=== PATIENT | male | born 1960 | race African-American/Black ===

== ENCOUNTER 2019-05-22 14:33 | Emergency (ER) | payer OTHER ==
[~2019-05-22] VITALS: Ht 177.8 cm; Wt 102.1 kg
--- OUTSIDE RECORDS SUMMARY | 2019-05-22 14:36 | XMS REPORT | Clinical Summary ---
Author Author SHAW [facility]it [facility] Address Unknown Phone Unavailable Care Team Providers Care Sheet Metal Former Name Role Phone Catherine Villatoro Unavailable Allergies No Known Allergies Medications End Date Status Medication Sig Dispensed Refills Start Date Active aspirin 81 MG chewable Take 81 mg by 0 tablet mouth daily. Active carvedilol (COREG) 12.5 Take 12.5 mg 0 MG tablet by mouth 2 (two) times daily with breakfast and dinner. Active clopidogrel (PLAVIX) 75 Take 75 mg by 0 mg tablet mouth daily. Active losartan (COZAAR) 100 MG Take 100 mg 0 tablet by mouth daily. Active rosuvastatin (CRESTOR) 10 Take 10 mg by 0 MG tablet mouth daily. Active multivit with min-folic Take 1 tablet 0 acid 0.4 mg by mouth TabIndications: Pre-op daily. exam Active famotidine (PEPCID) 10 MG Take 1 tablet 60 tablet 0 tablet (10 mg total) 9 by mouth every 12 (twelve) hours. Active furosemide (LASIX) 40 MG Take 40 mg by 11 tablet mouth daily. 9 Active tadalafil (CIALIS) 10 MG TK 1 T PO Q 5 tablet 72 H PRN UTD 9 01/02/2019 Discontinued coenzyme Q10 10 mg Take 100 mg 0 capsuleIndications: by mouth Pre-op exam every other day. 01/02/2019 Discontinued colchicine (COLCRYS) 0.6 Take 0.6 mg 0 mg tabletIndications: by mouth Pre-op exam daily as needed. 01/02/2019 Discontinued VIAGRA 100 mg TK 1 T PO PRN 0 tabletIndications: Pre-op 9 exam 01/12/2019 acetaminophen-codeine Take 1 tablet 30 tablet 0 (TYLENOL #3) 300-30 mg by mouth 9 per tablet every 6 (six) hours as needed for Pain for up to 10 days. 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 PAD (peripheral artery disease) 12/16/2018 Peripheral arterial occlusive disease Foot ulcer, right Overview: nonhealing Coronary artery disease Hypertension Overview: on meds Current smoker Encounters Care Team Description Date Type Specialty Catherine Woods MD 05/15/2019 Refill Cardiology Catherine Woods MD Swelling of calf (Primary Dx) 04/08/2019 Office Visit Cardiology Catherine Woods MD Post-operative state (Primary Dx) 01/28/2019 Office Visit Cardiology Catherine Woods MD Postoperative state (Primary Dx) 01/12/2019 Office Visit Cardiology Catherine Woods MD ENDARTERECTOMY,FEMORAL 12/29/[address] Craft MD 12/29/2018 Anesthesia Event Catherine Woods MD 12/29/2018 Hospital Cardiology - Encounter 01/02/2019 Catherine Woods MD Resource, Oq[employer] Preadmit Phone 12/23/2018 Hospital Pre-Admission Testing Encounter Catherine Woods MD Pre-op exam 12/22/2018 Hospital Cardiology Encounter Catherine Woods MD Pre-op exam (Primary Dx); Peripheral arterial occlusive disease (HCC); Ulcer of right foot, unspecified ulcer stage (HCC); Coronary artery disease involving [place] coronary artery of [place] heart without angina pectoris; Essential hypertension; Current smoker 12/22/2018 Office Visit Cardiology Mehul Alonzo MD PERIPHERAL ANGIOS & IVUS 12/16/2018 Surgery Mehul Alonzo MD PAD (peripheral artery disease) (HCC) (Primary Dx) 12/16/2018 Hospital Encounter after 05/21/2018 Family History Medical History Relation Name Comments Alcohol abuse Father Heart attack Mother COPD Sister Relation Name Status Comments Father Mother Sister Social History Date Tobacco Use Types Packs/Day Years Used Current Every Day Smoker 0.5 28 Smokeless Tobacco: Never Used Tobacco Cessation: Ready to Quit: No; Counseling Given: Yes Alcohol Use Drinks/Week oz/Week Comments Yes <1 pint/week Sex Assigned at Date Recorded Not on file Industry Job Start Date Occupation Not on file Not on file Not on file Travel End Travel History Travel Start No recent travel history available. Last Filed Vital Signs Time Taken Vital Sign Reading 04/08/2019 1:35 PM CDT Blood Pressure 185/83 04/08/2019 1:35 PM CDT Pulse 57 04/08/2019 1:35 PM CDT Temperature 36.6 C (97.8 F) 04/08/2019 1:35 PM CDT Respiratory Rate 14 04/08/2019 1:35 PM CDT Oxygen Saturation 100% - Inhaled Oxygen - Concentration 04/08/2019 1:35 PM CDT Weight 103.9 kg (229 lb) 04/08/2019 1:35 PM CDT Height 177.8 cm (5' 10") 04/08/2019 1:35 PM CDT Body Mass Index 32.86 Plan of Treatment Not on file Implants Device Identifier Shelf Expiration Date Model / Serial / Lot Implanted Type Area Manufactur er 05/13/2023 [id number] / / [id number] Patch Periph Vascu-Grd 2x9cm Tissue Right: Arterial [employer] [id number] - [id number] Graft/Subs LIFE Implanted: Qty: 1 on 12/29/2018 by [employer] TECH:SURG Chuck, Catherine Rocha MD INNOV Procedures Comments Procedure Name Priority Date/Time Associated Diagnosis RHYTHM STRIP - SCAN 01/06/2019 11:30 AM [facility] CBC W/PLT COUNT & AUTO Routine 01/02/2019 DIFFERENTIAL 4:31 AM [facility] MAGNESIUM Routine 01/02/2019 4:31 AM [facility] BASIC METABOLIC PANEL (7) Routine 01/02/2019 4:31 AM [facility] CBC W/PLT COUNT & AUTO Routine 01/02/2019 DIFFERENTIAL 4:31 AM [facility] CBC W/PLT COUNT & AUTO Routine 01/01/2019 DIFFERENTIAL 4:12 AM [facility] MAGNESIUM Routine 01/01/2019 4:12 AM [facility] BASIC METABOLIC PANEL (7) Routine 01/01/2019 4:12 AM [facility] CBC W/PLT COUNT & AUTO Routine 01/01/2019 DIFFERENTIAL 4:12 AM [facility] HEMOGLOBIN AND HEMATOCRIT Routine 12/31/2018 12:35 PM [facility] CBC W/PLT COUNT & AUTO Routine 12/31/2018 DIFFERENTIAL 6:05 AM [facility] CBC W/PLT COUNT & AUTO Routine 12/31/2018 DIFFERENTIAL 6:05 AM [facility] BASIC METABOLIC PANEL (7) Routine 12/31/2018 6:05 AM [facility] BASIC METABOLIC PANEL (7) Routine 12/30/2018 4:45 AM [facility] CBC W/PLT COUNT & AUTO Routine 12/29/2018 DIFFERENTIAL 5:03 PM [facility] HEMOGLOBIN A1C Routine 12/29/2018 5:03 PM [facility] BASIC METABOLIC PANEL (7) Routine 12/29/2018 5:03 PM [facility] CBC W/PLT COUNT & AUTO Routine 12/29/2018 DIFFERENTIAL 5:03 PM [facility] TISSUE EXAM AP Routine 12/29/2018 1:00 PM [facility] HGB/HCT (H&H) - STAT LAB Routine 12/29/2018 11:33 AM [facility] GLUCOSE-STAT LAB Routine 12/29/2018 11:33 AM [facility] POTASSIUM-STAT LAB Routine 12/29/2018 11:33 AM [facility] SODIUM NA-STAT LAB Routine 12/29/2018 11:33 AM [facility] BLOOD GAS, ARTERIAL Routine 12/29/2018 11:33 AM [facility] RRL CRITICAL LABS Routine 12/29/2018 (ABG,NA,K,H&H,GLUCOSE) 11:33 AM [facility] ENDOSCOPIC HARVEST,VEIN 12/29/2018 Peripheral vascular 7:30 AM [facility] disease, unspecified (HCC) BYPASS,FEMORAL-POPLITEAL 12/29/2018 Peripheral vascular 7:30 AM [facility] disease, unspecified (HCC) ENDARTERECTOMY,FEMORAL 12/29/2018 Peripheral vascular 7:30 AM [facility] disease, unspecified (HCC) PLATELET AGGREGATION: Routine 12/29/2018 FUNCTION SCREEN 6:16 AM [facility] POCT-GLUCOSE METER Routine 12/29/2018 5:41 AM [facility] REPORT OF PROCEDURE - 12/25/2018 ENDOSCOPY SCAN 1:11 PM [facility] CARDIAC CATH REPORT - 12/25/2018 SCAN 1:11 PM [facility] VASCULAR DIAGRAM -SCAN 12/25/2018 1:11 PM [facility] TRANSFUSION SERVICE 12/23/2018 Pre-op exam REPORT - SCAN 6:04 PM [facility] VASCULAR DIAGRAM -SCAN 12/23/2018 5:32 PM [facility] VASCULAR DIAGRAM -SCAN 12/23/2018 5:32 PM [facility] VEIN MAPPING LEGS Routine 12/22/2018 Pre-op exam BILATERAL 5:30 PM [facility] CBC W/PLT COUNT & AUTO STAT 12/22/2018 Pre-op exam DIFFERENTIAL 3:25 PM [facility] TYPE AND SCREEN, STAT 12/22/2018 Pre-op exam AUTOMATED 3:25 PM [facility] BASIC METABOLIC PANEL (7) STAT 12/22/2018 Pre-op exam 3:25 PM [facility] CBC W/PLT COUNT & AUTO STAT 12/22/2018 Pre-op exam DIFFERENTIAL 3:25 PM [facility] PROTHROMBIN TIME/INR Routine 12/22/2018 Pre-op exam 3:25 PM [facility] PERIPHERAL ANGIOS & IVUS 12/16/2018 PAD (peripheral artery 5:51 PM [facility]UM disease) (HCC) Case Notes POP6 after 05/21/2018 Results * RHYTHM STRIP - SCAN (01/06/2019 11:30 AM [facility]) Narrative Performed At * CBC with platelet count + automated diff (01/02/2019 4:31 AM REG[facility]UM) Only the most recent of 5 results within the time period is included. WBC 8.0 3.5 - 10.5 K/L [facility] RBC 2.92 (L) 4.63 - 6.08 M/L [facility] Hemoglobin 8.5 (L) 13.7 - 17.5 GM/DL [facility] Hematocrit 26.5 (L) 40.1 - 51.0 % [facility] MCV 90.8 79.0 - 92.2 fL [facility] MCH 29.1 25.7 - 32.2 pg [facility] MCHC 32.1 (L) 32.3 - 36.5 GM/DL [facility] RDW 13.7 11.6 - 14.4 % [facility] Platelets 114 (L) 150 - 450 K/CU MM [facility] MPV 12.4 9.4 - 12.4 fL [facility] nRBC 0 0 - 0 /100 WBC [facility] % Neutros 67 % [facility] % Lymphs 15 % [facility] % Monos 15 % [facility] % Eos 2 % [facility] % Baso 1 % [facility] # Neutros 5.35 1.78 - 5.38 K/L [facility] # Lymphs 1.20 (L) 1.32 - 3.57 K/L [facility] # Monos 1.17 (H) 0.30 - 0.82 K/L [facility] # Eos 0.19 0.04 - 0.54 K/L [facility] # Baso 0.04 0.01 - 0.08 K/L [facility] Immature 1 0 - 1 % [facility] Granulocytes-[facility] Specimen Blood Performing Organization Address City/State/Zipcode Phone Number [facility] [address] [place] [address] [facility] * Magnesium (01/02/2019 4:31 AM REG[facility]USEUM) Only the most recent of 2 results within the time period is included. Magnesium 1.6 1.6 - 2.6 mg/dL [facility] Specimen Blood Performing Organization Address City/[facility] Phone Number [facility] [address] [place], [place] [phone] [facility] * Basic Metabolic Panel (01/02/2019 4:31 AM REGISTRAR MUSEUM) Only the most recent of 6 results within the time period is included. Sodium 134 (L) 136 - 145 meq/L [facility] Potassium 3.7 3.5 - 5.1 meq/L [facility] Chloride 100 98 - 107 meq/L [facility] CO2 28 22 - 29 meq/L [facility] BUN 9 7 - 21 mg/dL [facility] Creatinine 0.74 0.57 - 1.25 mg/dL [facility] Glucose 93 70 - 105 mg/dL [facility] Calcium 8.7 8.4 - 10.2 mg/dL [facility] EGFR 131Comment: ESTIMATED GFR IS mL/min/1.73 sq m [facility] NOT ACCURATE CREATININE [facility] CLEARANCE IN PREDICTING GLOMERULAR FILTRATION RATE. ESTIMATED GFR IS NOT APPLICABLE FOR DIALYSIS PATIENTS. Specimen Blood Performing Organization Address City/[facility] Hospital[facility] Phone Number [place] [phone] [place] [address] [facility] * Hemoglobin and hematocrit (12/31/2018 12:35 PM [facility]) Hemoglobin 9.4 (L) 13.7 - 17.5 GM/DL [facility] Hematocrit 29.9 (L) 40.1 - 51.0 % [facility] Specimen Blood Performing Organization Address City/State/[facility] Hospital[facility] Phone Number [facility] [address] [place] [phone] [facility] * Hemoglobin A1c (12/29/2018 5:03 PM REGISTRAR MUSEUM) Hemoglobin A1C 5.2 4.3 - 6.1 % [facility] Specimen Blood Performing Organization Address City/[facility] Hospitalcode Phone Number [address] [address] [facility] * Tissue Exam (12/29/2018 1:00 PM REGISTRAR MUSEUM) Case Report Surgical Pathology [facility] Report [facility] Case: [id number] Authorizing Provider:Catherine Woods MD Collected: 12/29/2018 1300 Ordering Location: [facility] Received: 12/29/2018 1417 PERIOPERATIVE SERVICES Pathologist: Jose M Hernandez MD Specimen:Plaque, RIGHT FEMORAL ARTERY PLAQUE DIAGNOSIS FEMORAL ARTERY, RIGHT, [facility] ENDARTERECTOMY: [facility] - CALCIFIC ATHEROSCLEROTIC PLAQUE Signing Pathologist Direct Phone Line: [phone] CPT Code(s) 57377, 94005 [facility] CLINICAL HISTORY Peripheral vascular disease [facility] SPECIMEN SOURCE Right femoral artery plaque [facility] GROSS DESCRIPTION The specimen is received in [facility] formalin labeled with the [facility] patient's information labeled "right femoral artery plaque" and consists of multiple calcified fragments of tissue measuring 2.5 x 1.5 x 0.3 cm in aggregate. Counter Stacker sections are submitted A1 for decalcification. CG/pl MICROSCOPIC DESCRIPTION Performed. [facility] Specimen Tissue Performing Organization Address City/[facility]/Zipcode Phone Number [address] [address] [facility] * Potassium-Stat Lab (12/29/2018 11:33 AM REGISTRAR MUSEUM) Potassium 4.0 3.6 - 5.5 meq/L [facility] Specimen Blood, Arterial Performing Organization Address City/State/[place] [address] [phone] [place] [address] * Sodium Na-Stat Lab (12/29/2018 11:33 AM REGISTRAR MUSEUM) Sodium 131 (L) 135 - 148 meq/L [facility] Specimen Blood, Arterial Performing Organization Address [facility] Hospital[facility] Phone Number [place] [phone] [place] [address] * Glucose-Stat Lab (12/29/2018 11:33 AM REGISTRAR MUSEUM) Glucose 116 (H) 70 - 110 mg/dL [facility] Specimen Blood, Arterial Performing Organization Address [facility] Phone Number [address] * HGB/HCT (H&H)-Stat Lab (12/29/2018 11:33 AM REGISTRAR MUSEUM) Hemoglobin 12.4 (L) 13.0 - 16.8 g/dL [facility] Hematocrit 36.0 (L) 40.0 - 50.0 % [facility] Specimen Blood, Arterial Performing Organization Address [facility] Phone Number [place] [phone] [place] [address] * Blood gas, arterial (12/29/2018 11:33 AM REGISTRAR MUSEUM) pH, Arterial 7.40 7.35 - 7.45 [facility] pCO2, Arterial 43 35 - 45 mmHg [facility] pO2, Arterial 459 (H) 80 - 90 mmHg [facility] O2 Sat, Arterial 99.9 (H) 96.0 - 97.0 % [facility] HCO3, Arterial 26 21 - 29 mmol/L [facility] Base Excess, Arterial 0.4 -2.0 - 3.0 mmol/L [facility] Patient Temperature 36.6 C [facility] FIO2 100.0 % [facility] Specimen Blood, Arterial Performing Organization Address [facility] Phone Number [address] * Platelet Aggregation: Function Screen (12/29/2018 6:16 AM REGISTRAR MUSEUM) Weak ADP 56 (L) 60 - 91 % [facility] Plt. Function Screen 50-59% indicates mild platelet [facility] Interpretation dysfunction [facility] Pathologist: Cristian Parra MD (electronic [facility] signature) [facility] Platelets 142 (L) 150 - 450 K/CU MM [facility] Specimen Blood Narrative Performed At Platelet Function Screen results may be falsely low with platelet counts [facility] <100,000/cu mm. [facility] for patients on clopidogrel in past two weeks Performing Organization Address [facility] Phone Number [address] * POC-Glucose meter (12/29/2018 5:41 AM REGISTRAR MUSEUM) POC-Glucose Meter 90Comment: TESTED AT [facility] 70 - 110 mg/dL [address] Specimen Blood Performing Organization Address [facility] Phone Number [address] * EKG-SCANNED (12/25/2018 1:11 PM REGISTRAR MUSEUM) Narrative Performed At * CARDIAC CATH REPORT - SCAN (12/25/2018 1:11 PM REGISTRAR MUSEUM) Narrative Performed At * VASCULAR DIAGRAM -SCAN (12/25/2018 1:11 PM [facility]RAR MUSEUM) Only the most recent of 3 results within the time period is included. Narrative Performed At * TRANSFUSION SERVICE REPORT - SCAN (12/23/2018 6:04 PM REGISTRAR MUSEUM) Narrative Performed At * Vein Mapping Legs Bilateral (12/22/2018 5:30 PM REGISTRAR MUSEUM) [facility] ECHO HEARTLAB [facility] Specimen Impressions Performed At Right Impression [facility] ECHO HEARTLAB 1. There is no deep venous venous obstruction in the common femoral, [facility] profunda femoral, femoral, popliteal, posterior tibial or peroneal veins. 2. There is no superficial venous obstruction in the great saphenous vein. Left Impression 1. There is no deep venous obstruction in the common femoral, profunda femoral, femoral, popliteal, posterior tibial or peroneal veins. 2. There is no superficial venous obstruction in the great saphenous vein. Conclusions Summary Venous duplex imaging and compression of the bilateral lower extremities was performed. The veins were adequately visualized. The bilateral venous systems were patent and compressible with no evidence of thrombus. Superficial venous measurements are documented below. Signature Velocities are measured in cm/s ; Diameters are measured in cm LE Vein Mapping Superficial - Great Saphenous Vein Right Left + + + + + + + + !Location ! !Diameter!Depth ! !Diameter!Depth ! + + + + + + + + !Sapheno Femoral Junction ! !0.55!1.38 ! !0.54!1.54 ! + + + + + + + + !GSV High Thigh ! !0.44!1.11 ! !0.48!1.55 ! + + + + + + + + !GSV Mid Thigh ! !0.41!0.45 ! !0.38!0.72 ! + + + + + + + + !GSV Low Thigh ! !0.32!0.5 ! !0.33!0.7 ! + + + + + + + + !GSV Knee ! !0.28!0.38 ! !0.41!0.89 ! + + + + + + + + !GSV Mid Calf ! !0.32!0.26 ! !0.27!0.3 ! + + + + + + + + !GSV Low Calf ! !0.29!0.51 ! !0.3 !0.4! + + + + + + + + !GSV Ankle ! !0.39!0.54 ! !0.26!0.18 ! + + + + + + + + Superficial - Lesser Saphenous VeinRight Left + + + + + + + + !Location ! !Diameter!Depth ! !Diameter!Depth ! + + + + + + + + !SSV High Calf ! !0.27!0.54 ! !0.42!0.52 ! + + + + + + + + !SSV Mid Calf ! !0.54!0.63 ! !0.31!0.53 ! + + + + + + + + !SSV Low Calf ! !0.24!0.64 ! !0.28!0.55 ! + + + + + + + + Narrative Performed At PV LAB - Lower Extremities Vein Mapping [facility] ECHO HEARTLAB Demographics [facility] Patient NameGABE VALENCIA Date of Study12/22/2018 GABI Age58 Visit [id number] Gender Male Date of Birth1960 [facility] Physician CHUCK Environmental Studies Professor Rony Aragon Interpreting Nargis GillisMD Procedure Type of Study: Veins: Lower Extremity Vein Mapping, VEIN MAPPING, LOWER EXTREMITY, BILATERAL. Indications for Study:Pre-op evaluation. Patient Status:Routine. Study Location:Vascular Lab. Technical Quality:Adequate visualization. Procedure Note Interface, External Ris In - 12/22/2018 10:01 PM REGISTRAR MUSEUM PV LAB - Lower Extremities Vein Mapping Demographics Patient Name GABE VALENCIA Date of Study 12/22/2018 GABI Age 58 Visit Number [id number] Gender Male Accession Number [id number] Date of 1960 Referring [facility] Room Number Physician CHUCK Environmental Studies Professor Rony Aragon Interpreting Physician JEFF Gillis Procedure Type of Study: Veins: Lower Extremity Vein Mapping, VEIN MAPPING, LOWER EXTREMITY, BILATERAL. Indications for Study:Pre-op evaluation. Patient Status:Routine. Study Location:Vascular Lab. Technical Quality:Adequate visualization. Impressions Right Impression 1. There is no deep venous venous obstruction in the common femoral, profunda femoral, femoral, popliteal, posterior tibial or peroneal veins. 2. There is no superficial venous obstruction in the great saphenous vein. Left Impression 1. There is no deep venous obstruction in the common femoral, profunda femoral, femoral, popliteal, posterior tibial or peroneal veins. 2. There is no superficial venous obstruction in the great saphenous vein. Conclusions Summary Venous duplex imaging and compression of the bilateral lower extremities was performed. The veins were adequately visualized. The bilateral venous systems were patent and compressible with no evidence of thrombus. Superficial venous measurements are documented below. Signature Velocities are measured in cm/s ; Diameters are measured in cm LE Vein Mapping Superficial - Great Saphenous Vein Right Left + + + + + + + + !Location ! !Diameter !Depth ! !Diameter !Depth ! + + + + + + + + !Sapheno Femoral Junction ! !0.55 !1.38 ! !0.54 !1.54 ! + + + + + + + + !GSV High Thigh ! !0.44 !1.11 ! !0.48 !1.55 ! + + + + + + + + !GSV Mid Thigh ! !0.41 !0.45 ! !0.38 !0.72 ! + + + + + + + + !GSV Low Thigh ! !0.32 !0.5 ! !0.33 !0.7 ! + + + + + + + + !GSV Knee ! !0.28 !0.38 ! !0.41 !0.89 ! + + + + + + + + !GSV Mid Calf ! !0.32 !0.26 ! !0.27 !0.3 ! + + + + + + + + !GSV Low Calf ! !0.29 !0.51 ! !0.3 !0.4 ! + + + + + + + + !GSV Ankle ! !0.39 !0.54 ! !0.26 !0.18 ! + + + + + + + + Superficial - Lesser Saphenous Vein Right Left + + + + + + + + !Location ! !Diameter !Depth ! !Diameter !Depth ! + + + + + + + + !SSV High Calf ! !0.27 !0.54 ! !0.42 !0.52 ! + + + + + + + + !SSV Mid Calf ! !0.54 !0.63 ! !0.31 !0.53 ! + + + + + + + + !SSV Low Calf ! !0.24 !0.64 ! !0.28 !0.55 ! + + + + + + + + Performing Organization Address City/[facility]/Zipcode Phone Number [facility] ECHO HEARTLAB MKCKESSON [facility] * Type and screen, automated ([facility] Blood Bank) (12/22/2018 3:25 PM REGISTRAR MUSEUM) ABO/RH AUTOMATED (BEJULI) A POSITIVE [facility] Ab Scrn NEGATIVE [facility] Specimen Blood Performing Organization Address City/[facility]/Zipcode Phone Number [facility] [address] [place] [address] [facility] * Prothrombin time/INR (12/22/2018 3:25 PM REGISTRAR MUSEUM) Protime 12.6 11.7 - 14.7 seconds [facility] INR 0.9 <=5.9 [facility] Specimen Blood Narrative Performed At RECOMMENDED COUMADIN/WARFARIN INR THERAPY RANGES [facility] STANDARD DOSE: 2.0 - 3.0 Includes: PROPHYLAXIS for venous thrombosis, [facility] systemic embolization; TREATMENT for venous thrombosis and/or pulmonary embolus. HIGH RISK: Target INR is 2.5-3.5 for patients with mechanical heart valves. Performing Organization Address City/State/Zipcode Phone Number [facility] [address] [place] [address] [facility] after 05/21/2018 Insurance Payer Benefit Subscriber ID Type Phone Address Plan / Group [employer] - [place] CARE CIGNA xxxxxxxxxxx HMO/POS HMO/POS/OP EN ACCESS [employer] - [place] CARE CIG[employer] xxxxxxxxx HMO/POS HMO/POS/OP EN ACCESS Advance Directives For more information, please contact: [facility] [address] [place], [place] [phone] Date Inactivated Comments Code Status Date Activated 01/02/2019 5:36 PM Full Code 12/29/2018 5:43 AM This code status was determined by: Patient 12/29/2018 5:27 AM Full Code 12/16/2018 10:12 AM This code status was determined by: Patient
--- OUTSIDE RECORDS SUMMARY | 2019-05-22 14:36 | XMS REPORT ---
Author Author [facility] Address Unknown Phone Unavailable Care Team Providers Care Rides Supervisor Name Role Phone CINTHIA WOODS Unavailable Unavailable Problems This patient has no known problems. Allergies, Adverse Reactions, Alerts This patient has no known allergies or adverse reactions. Medications This patient has no known medications. Results Test Description Test Time Test Comments Text Results Atomic Results Result Comments MAGNESIUM 2019-01-02 05:26:00 MAGNESIUM (BEAKER) (test ksvw=499) 1.6 mg/dL 1.6-2.6 BASIC METABOLIC [id number] 05:26:00* Test Item Value Reference Range Comments SODIUM (BEAKER) (test mupm=101) 134 meq/L 136-145 POTASSIUM (BEAKER) (test klhs=700) 3.7 meq/L 3.5-5.1 CHLORIDE (BEAKER) (test wpbh=776) 100 meq/L 98-107 CO2 (BEAKER) (test huws=079) 28 meq/L 22-29 BLOOD UREA NITROGEN (BEAKER) (test fjxx=783) 9 mg/dL 7-21 CREATININE (BEAKER) (test dkds=409) 0.74 mg/dL 0.57-1.25 GLUCOSE RANDOM (BEAKER) (test itoo=301) 93 mg/dL 70-105 CALCIUM (BEAKER) (test mycg=811) 8.7 mg/dL 8.4-10.2 EGFR (BEAKER) (test czzm=9130) 131 mL/min/1.73 sq m ESTIMATED GFR IS NOT ACCURATE CREATININE CLEARANCE IN PREDICTING GLOMERULAR FILTRATION RATE. ESTIMATED GFR IS NOT APPLICABLE FOR DIALYSIS PATIENTS. CBC W/PLT COUNT & AUTO [id number] 04:58:00* Test Item Value Reference Range Comments WHITE BLOOD CELL COUNT (BEAKER) (test joit=838) 8.0 K/ L 3.5-10.5 RED BLOOD CELL COUNT (BEAKER) (test chmi=823) 2.92 M/ L 4.63-6.08 HEMOGLOBIN (BEAKER) (test kmds=860) 8.5 GM/DL 13.7-17.5 HEMATOCRIT (BEAKER) (test lxal=180) 26.5 % 40.1-51.0 MEAN CORPUSCULAR VOLUME (BEAKER) (test ykqz=595) 90.8 fL 79.0-92.2 MEAN CORPUSCULAR HEMOGLOBIN (BEAKER) (test nmni=739) 29.1 pg 25.7-32.2 MEAN CORPUSCULAR HEMOGLOBIN CONC (BEAKER) (test iapk=037) 32.1 GM/DL 32.3-36.5 RED CELL DISTRIBUTION WIDTH (BEAKER) (test huef=957) 13.7 % 11.6-14.4 PLATELET COUNT (BEAKER) (test vcod=423) 114 K/CU MM 150-450 MEAN PLATELET VOLUME (BEAKER) (test nfmp=901) 12.4 fL 9.4-12.4 NUCLEATED RED BLOOD CELLS (BEAKER) (test hwnn=765) 0 /100 WBC 0-0 NEUTROPHILS RELATIVE PERCENT (BEAKER) (test efkr=959) 67 % LYMPHOCYTES RELATIVE PERCENT (BEAKER) (test zklq=332) 15 % MONOCYTES RELATIVE PERCENT (BEAKER) (test ejap=371) 15 % EOSINOPHILS RELATIVE PERCENT (BEAKER) (test umai=948) 2 % BASOPHILS RELATIVE PERCENT (BEAKER) (test olnt=202) 1 % NEUTROPHILS ABSOLUTE COUNT (BEAKER) (test mcfi=217) 5.35 K/ L 1.78-5.38 LYMPHOCYTES ABSOLUTE COUNT (BEAKER) (test gppl=062) 1.20 K/ L 1.32-3.57 MONOCYTES ABSOLUTE COUNT (BEAKER) (test rzye=226) 1.17 K/ L 0.30-0.82 EOSINOPHILS ABSOLUTE COUNT (BEAKER) (test epvp=360) 0.19 K/ L 0.04-0.54 BASOPHILS ABSOLUTE COUNT (BEAKER) (test rwpt=534) 0.04 K/ L 0.01-0.08 IMMATURE GRANULOCYTES-RELATIVE PERCENT (BEAKER) (test udhl=3863) 1 % 0-1 TISSUE [id number] 11:07:00Surgical Pathology Report Case: [id number] Authorizing Provider: Antwon Woods MD Collected: 12/29/2018 1300 [facility]ing Location[facility] Received: 12/29/2018 1417 PERIOPERATIVE SERVICES Pathologist: Jose M Hernandez MD Specimen: Plaque, RIGHT FEMORAL ARTERY PLAQUE FEMORAL ARTERY, RIGHT, ENDARTERECTOMY: - CALCIFIC ATHEROSCLEROTIC PLAQUE Signing Pathologist Direct Phone Line: [phone] signed by Jose M Hernandez MD on 01/01/2019 at 11:07 [id number], [id number] vascular diseaseRight femoral artery plaqueThe specimen is received in formalin labeled with the patient's information labeled "right femoral artery plaque" and consists of multiple calcified fragments of tissue measuring 2.5 x 1.5 x 0.3 cm in aggregate. Substance Abuse Rn sections are submitted A1 for decalcification. CG/pl Performed. [id number] 05:59:00* Test Item Value Reference Range Comments MAGNESIUM (BEAKER) (test jfxk=297) 1.6 mg/dL 1.6-2.6 BASIC METABOLIC [id number] 05:59:00* Test Item Value Reference Range Comments SODIUM (BEAKER) (test ymga=822) 134 meq/L 136-145 POTASSIUM (BEAKER) (test ragx=616) 3.6 meq/L 3.5-5.1 CHLORIDE (BEAKER) (test mapz=112) 101 meq/L 98-107 CO2 (BEAKER) (test ogvt=494) 26 meq/L 22-29 BLOOD UREA NITROGEN (BEAKER) (test hhkg=050) 7 mg/dL 7-21 CREATININE (BEAKER) (test rvsm=770) 0.73 mg/dL 0.57-1.25 GLUCOSE RANDOM (BEAKER) (test opck=048) 90 mg/dL 70-105 CALCIUM (BEAKER) (test stug=720) 8.5 mg/dL 8.4-10.2 EGFR (BEAKER) (test eiia=9629) 133 mL/min/1.73 sq m ESTIMATED GFR IS NOT ACCURATE CREATININE CLEARANCE IN PREDICTING GLOMERULAR FILTRATION RATE. ESTIMATED GFR IS NOT APPLICABLE FOR DIALYSIS PATIENTS. CBC W/PLT COUNT & AUTO [id number] 04:51:00* Test Item Value Reference Range Comments WHITE BLOOD CELL COUNT (BEAKER) (test yawd=803) 9.5 K/ L 3.5-10.5 RED BLOOD CELL COUNT (BEAKER) (test lufw=937) 2.97 M/ L 4.63-6.08 HEMOGLOBIN (BEAKER) (test vhpu=030) 8.7 GM/DL 13.7-17.5 HEMATOCRIT (BEAKER) (test vulm=454) 26.8 % 40.1-51.0 MEAN CORPUSCULAR VOLUME (BEAKER) (test dgwc=577) 90.2 fL 79.0-92.2 MEAN CORPUSCULAR HEMOGLOBIN (BEAKER) (test hfmc=825) 29.3 pg 25.7-32.2 MEAN CORPUSCULAR HEMOGLOBIN CONC (BEAKER) (test ribn=239) 32.5 GM/DL 32.3-36.5 RED CELL DISTRIBUTION WIDTH (BEAKER) (test mrkg=909) 13.8 % 11.6-14.4 PLATELET COUNT (BEAKER) (test suwa=622) 108 K/CU MM 150-450 MEAN PLATELET VOLUME (BEAKER) (test ifwd=489) 12.0 fL 9.4-12.4 NUCLEATED RED BLOOD CELLS (BEAKER) (test wvnw=973) 0 /100 WBC 0-0 NEUTROPHILS RELATIVE PERCENT (BEAKER) (test lays=512) 72 % LYMPHOCYTES RELATIVE PERCENT (BEAKER) (test lxsh=249) 13 % MONOCYTES RELATIVE PERCENT (BEAKER) (test dbpc=563) 14 % EOSINOPHILS RELATIVE PERCENT (BEAKER) (test ophy=811) 1 % BASOPHILS RELATIVE PERCENT (BEAKER) (test bhoo=072) 0 % NEUTROPHILS ABSOLUTE COUNT (BEAKER) (test pozi=855) 6.78 K/ L 1.78-5.38 LYMPHOCYTES ABSOLUTE COUNT (BEAKER) (test ollt=929) 1.20 K/ L 1.32-3.57 MONOCYTES ABSOLUTE COUNT (BEAKER) (test buqp=066) 1.36 K/ L 0.30-0.82 EOSINOPHILS ABSOLUTE COUNT (BEAKER) (test kvso=871) 0.08 K/ L 0.04-0.54 BASOPHILS ABSOLUTE COUNT (BEAKER) (test evmd=758) 0.03 K/ L 0.01-0.08 IMMATURE GRANULOCYTES-RELATIVE PERCENT (BEAKER) (test lwqo=7454) 0 % 0-1 HEMOGLOBIN AND [id number] 12:58:00* Test Item Value Reference Range Comments HEMOGLOBIN (BEAKER) (test jgyq=571) 9.4 GM/DL 13.7-17.5 HEMATOCRIT (BEAKER) (test mduo=798) 29.9 % 40.1-51.0 BASIC METABOLIC [id number] 06:37:00* Test Item Value Reference Range Comments SODIUM (BEAKER) (test jjqs=325) 134 meq/L 136-145 POTASSIUM (BEAKER) (test dhrm=794) 3.9 meq/L 3.5-5.1 CHLORIDE (BEAKER) (test xgoi=828) 101 meq/L 98-107 CO2 (BEAKER) (test wxxb=577) 26 meq/L 22-29 BLOOD UREA NITROGEN (BEAKER) (test nrzg=680) 7 mg/dL 7-21 CREATININE (BEAKER) (test oyoz=268) 0.75 mg/dL 0.57-1.25 GLUCOSE RANDOM (BEAKER) (test jeur=625) 89 mg/dL 70-105 CALCIUM (BEAKER) (test iyun=742) 8.8 mg/dL 8.4-10.2 EGFR (BEAKER) (test wyzf=1957) 129 mL/min/1.73 sq m ESTIMATED GFR IS NOT ACCURATE CREATININE CLEARANCE IN PREDICTING GLOMERULAR FILTRATION RATE. ESTIMATED GFR IS NOT APPLICABLE FOR DIALYSIS PATIENTS. CBC W/PLT COUNT & AUTO [id number] 06:16:00* Test Item Value Reference Range Comments WHITE BLOOD CELL COUNT (BEAKER) (test plyf=577) 8.5 K/ L 3.5-10.5 RED BLOOD CELL COUNT (BEAKER) (test fnxe=342) 3.27 M/ L 4.63-6.08 HEMOGLOBIN (BEAKER) (test bpxq=920) 9.7 GM/DL 13.7-17.5 HEMATOCRIT (BEAKER) (test wgpu=148) 29.8 % 40.1-51.0 MEAN CORPUSCULAR VOLUME (BEAKER) (test cdth=782) 91.1 fL 79.0-92.2 MEAN CORPUSCULAR HEMOGLOBIN (BEAKER) (test mjcr=607) 29.7 pg 25.7-32.2 MEAN CORPUSCULAR HEMOGLOBIN CONC (BEAKER) (test lkar=450) 32.6 GM/DL 32.3-36.5 RED CELL DISTRIBUTION WIDTH (BEAKER) (test xyff=428) 14.0 % 11.6-14.4 PLATELET COUNT (BEAKER) (test tjtw=519) 114 K/CU MM 150-450 MEAN PLATELET VOLUME (BEAKER) (test qpis=573) 11.5 fL 9.4-12.4 NUCLEATED RED BLOOD CELLS (BEAKER) (test lzrv=350) 0 /100 WBC 0-0 NEUTROPHILS RELATIVE PERCENT (BEAKER) (test ermo=233) 70 % LYMPHOCYTES RELATIVE PERCENT (BEAKER) (test kfpg=239) 14 % MONOCYTES RELATIVE PERCENT (BEAKER) (test pydf=769) 14 % EOSINOPHILS RELATIVE PERCENT (BEAKER) (test rjgn=404) 1 % BASOPHILS RELATIVE PERCENT (BEAKER) (test tpgk=531) 1 % NEUTROPHILS ABSOLUTE COUNT (BEAKER) (test hmej=805) 5.96 K/ L 1.78-5.38 LYMPHOCYTES ABSOLUTE COUNT (BEAKER) (test fifl=638) 1.18 K/ L 1.32-3.57 MONOCYTES ABSOLUTE COUNT (BEAKER) (test leoi=644) 1.19 K/ L 0.30-0.82 EOSINOPHILS ABSOLUTE COUNT (BEAKER) (test ywvd=150) 0.09 K/ L 0.04-0.54 BASOPHILS ABSOLUTE COUNT (BEAKER) (test mrxd=326) 0.05 K/ L 0.01-0.08 IMMATURE GRANULOCYTES-RELATIVE PERCENT (BEAKER) (test enin=6183) 0 % 0-1 BASIC METABOLIC [id number] 06:00:00* Test Item Value Reference Range Comments SODIUM (BEAKER) (test qsen=616) 132 meq/L 136-145 POTASSIUM (BEAKER) (test rdfd=105) 3.8 meq/L 3.5-5.1 CHLORIDE (BEAKER) (test egqa=334) 102 meq/L 98-107 CO2 (BEAKER) (test vhjb=095) 26 meq/L 22-29 BLOOD UREA NITROGEN (BEAKER) (test bpzu=252) 12 mg/dL 7-21 CREATININE (BEAKER) (test xsre=085) 1.06 mg/dL 0.57-1.25 GLUCOSE RANDOM (BEAKER) (test ivnr=569) 93 mg/dL 70-105 CALCIUM (BEAKER) (test khis=010) 8.4 mg/dL 8.4-10.2 EGFR (BEAKER) (test iphm=5022) 87 mL/min/1.73 sq m ESTIMATED GFR IS NOT ACCURATE CREATININE CLEARANCE IN PREDICTING GLOMERULAR FILTRATION RATE. ESTIMATED GFR IS NOT APPLICABLE FOR DIALYSIS PATIENTS. BASIC METABOLIC [id number] 17:41:00* Test Item Value Reference Range Comments SODIUM (BEAKER) (test fozp=354) 136 meq/L 136-145 POTASSIUM (BEAKER) (test avhu=750) 5.4 meq/L 3.5-5.1 Specimen moderately hemolyzed CHLORIDE (BEAKER) (test zamt=494) 105 meq/L 98-107 CO2 (BEAKER) (test czvc=570) 26 meq/L 22-29 BLOOD UREA NITROGEN (BEAKER) (test brlq=854) 10 mg/dL 7-21 CREATININE (BEAKER) (test whoh=695) 0.83 mg/dL 0.57-1.25 Specimen moderately hemolyzed GLUCOSE RANDOM (BEAKER) (test mdgh=226) 102 mg/dL 70-105 CALCIUM (BEAKER) (test yrjm=158) 8.6 mg/dL 8.4-10.2 EGFR (BEAKER) (test wtfs=2434) 115 mL/min/1.73 sq m ESTIMATED GFR IS NOT ACCURATE CREATININE CLEARANCE IN PREDICTING GLOMERULAR FILTRATION RATE. ESTIMATED GFR IS NOT APPLICABLE FOR DIALYSIS PATIENTS. HEMOGLOBIN [id number] 17:40:00* Test Item Value Reference Range Comments HEMOGLOBIN A1C (BEAKER) (test vorb=262) 5.2 % 4.3-6.1 CBC W/PLT COUNT & AUTO [id number] 17:29:00* Test Item Value Reference Range Comments WHITE BLOOD CELL COUNT (BEAKER) (test kqwk=428) 15.0 K/ L 3.5-10.5 RED BLOOD CELL COUNT (BEAKER) (test eiiw=914) 4.09 M/ L 4.63-6.08 HEMOGLOBIN (BEAKER) (test bwfr=503) 12.0 GM/DL 13.7-17.5 HEMATOCRIT (BEAKER) (test sdtj=731) 37.5 % 40.1-51.0 MEAN CORPUSCULAR VOLUME (BEAKER) (test nate=873) 91.7 fL 79.0-92.2 MEAN CORPUSCULAR HEMOGLOBIN (BEAKER) (test qdlb=585) 29.3 pg 25.7-32.2 MEAN CORPUSCULAR HEMOGLOBIN CONC (BEAKER) (test rzgy=016) 32.0 GM/DL 32.3-36.5 RED CELL DISTRIBUTION WIDTH (BEAKER) (test xosp=540) 14.2 % 11.6-14.4 PLATELET COUNT (BEAKER) (test ohrb=401) 128 K/CU MM 150-450 MEAN PLATELET VOLUME (BEAKER) (test qmxj=432) 11.6 fL 9.4-12.4 NUCLEATED RED BLOOD CELLS (BEAKER) (test rjcs=214) 0 /100 WBC 0-0 NEUTROPHILS RELATIVE PERCENT (BEAKER) (test zdct=847) 82 % LYMPHOCYTES RELATIVE PERCENT (BEAKER) (test qewm=000) 8 % MONOCYTES RELATIVE PERCENT (BEAKER) (test jyon=963) 8 % EOSINOPHILS RELATIVE PERCENT (BEAKER) (test twhz=185) 0 % BASOPHILS RELATIVE PERCENT (BEAKER) (test oqzs=122) 1 % NEUTROPHILS ABSOLUTE COUNT (BEAKER) (test fzwm=212) 12.33 K/ L 1.78-5.38 LYMPHOCYTES ABSOLUTE COUNT (BEAKER) (test kskn=799) 1.23 K/ L 1.32-3.57 MONOCYTES ABSOLUTE COUNT (BEAKER) (test pgdk=300) 1.21 K/ L 0.30-0.82 EOSINOPHILS ABSOLUTE COUNT (BEAKER) (test fift=757) 0.04 K/ L 0.04-0.54 BASOPHILS ABSOLUTE COUNT (BEAKER) (test shhj=999) 0.07 K/ L 0.01-0.08 IMMATURE GRANULOCYTES-RELATIVE PERCENT (BEAKER) (test wyue=9035) 1 % 0-1 POTASSIUM-STAT [id number] 11:40:00* Test Item Value Reference Range Comments POTASSIUM (BEAKER) (test lmew=800) 4.0 meq/L 3.6-5.5 BLOOD GAS, [id number] 11:40:00* Test Item Value Reference Range Comments PH ARTERIAL (BEAKER) (test cniq=381) 7.40 7.35-7.45 PCO2 ARTERIAL (BEAKER) (test qrqr=860) 43 mmHg 35-45 PO2 ARTERIAL (BEAKER) (test xdmw=274) 459 mmHg 80-90 O2 SATURATION ARTERIAL (BEAKER) (test kady=310) 99.9 % 96.0-97.0 HCO3 ARTERIAL (BEAKER) (test vbbz=648) 26 mmol/L 21-29 BASE EXCESS ARTERIAL (BEAKER) (test giri=874) 0.4 mmol/L -2.0-3.0 PATIENT TEMPERATURE (BEAKER) (test cgfl=7922) 36.6 C FIO2 (BEAKER) (test koih=6483) 100.0 % SODIUM NA-STAT [id number] 11:40:00* Test Item Value Reference Range Comments SODIUM (BEAKER) (test oaio=954) 131 meq/L 135-148 GLUCOSE-STAT [id number] 11:40:00* Test Item Value Reference Range Comments GLUCOSE RANDOM (BEAKER) (test sudx=351) 116 mg/dL 70-110 HGB/HCT (H&H) - STAT [id number] 11:40:00* Test Item Value Reference Range Comments HEMOGLOBIN (BEAKER) (test sqsd=013) 12.4 g/dL 13.0-16.8 HEMATOCRIT (BEAKER) (test pcxm=783) 36.0 % 40.0-50.0 PLATELET AGGREGATION: FUNCTION [id number] 10:22:00* Test Item Value Reference Range Comments WEAK ADP RESULT(BEAKER) (test azhm=8309) 56 % 60-91 PLATELET FUNCTION SCREEN INTERP (BEAKER) (test quuh=7117) 50-59% indicates mild platelet dysfunction [id number] (BEAKER) (test mcld=8597) Cristian Parra MD (electronic signature) PLATELET COUNT AGG (BEAKER) (test zmbd=1222) 142 K/CU MM 150-450 Platelet Function Screen results may be falsely low with platelet counts< 100,000/cu mm.for patients on clopidogrel in past two weeksPOCT-GLUCOSE METER 2018-12-29 06:00:00* Test Item Value Reference Range Comments POC-GLUCOSE METER (BEAKER) (test gvpx=8624) 90 mg/dL 70-110 TESTED AT [facility] [address] [place] [address] BASIC METABOLIC [id number] 15:48:00* Test Item Value Reference Range Comments SODIUM (BEAKER) (test itlg=918) 136 meq/L 136-145 POTASSIUM (BEAKER) (test hlcp=015) 3.6 meq/L 3.5-5.1 CHLORIDE (BEAKER) (test dmyy=776) 101 meq/L 98-107 CO2 (BEAKER) (test ooqb=704) 28 meq/L 22-29 BLOOD UREA NITROGEN (BEAKER) (test sjzq=769) 10 mg/dL 7-21 CREATININE (BEAKER) (test uhfw=551) 0.91 mg/dL 0.57-1.25 GLUCOSE RANDOM (BEAKER) (test kzrs=774) 80 mg/dL 70-105 CALCIUM (BEAKER) (test vmlj=969) 9.7 mg/dL 8.4-10.2 EGFR (BEAKER) (test miif=1077) 103 mL/min/1.73 sq m ESTIMATED GFR IS NOT ACCURATE CREATININE CLEARANCE IN PREDICTING GLOMERULAR FILTRATION RATE. ESTIMATED GFR IS NOT APPLICABLE FOR DIALYSIS PATIENTS. PROTHROMBIN TIME/[id number] 15:41:00* Test Item Value Reference Range Comments PROTIME (BEAKER) (test rjlk=550) 12.6 seconds 11.7-14.7 INR (BEAKER) (test uizp=485) 0.9 <=5.9 RECOMMENDED COUMADIN/WARFARIN INR THERAPY RANGESSTANDARD DOSE: 2.0 - 3.0 Inclu abbe: PROPHYLAXIS for venous thrombosis, systemic embolization; TREATMENT for [place] ous thrombosis and/or pulmonary embolus.HIGH RISK: Target INR is 2.5-3.5 for pat ients with mechanical heart valves.CBC W/PLT COUNT & AUTO [id number] 15:31:00* Test Item Value Reference Range Comments WHITE BLOOD CELL COUNT (BEAKER) (test rrtm=514) 6.9 K/ L 3.5-10.5 RED BLOOD CELL COUNT (BEAKER) (test qynh=429) 4.75 M/ L 4.63-6.08 HEMOGLOBIN (BEAKER) (test soud=316) 14.1 GM/DL 13.7-17.5 HEMATOCRIT (BEAKER) (test nsay=740) 42.8 % 40.1-51.0 MEAN CORPUSCULAR VOLUME (BEAKER) (test ivom=884) 90.1 fL 79.0-92.2 MEAN CORPUSCULAR HEMOGLOBIN (BEAKER) (test putx=877) 29.7 pg 25.7-32.2 MEAN CORPUSCULAR HEMOGLOBIN CONC (BEAKER) (test favj=193) 32.9 GM/DL 32.3-36.5 RED CELL DISTRIBUTION WIDTH (BEAKER) (test ulne=137) 13.6 % 11.6-14.4 PLATELET COUNT (BEAKER) (test knlv=940) 140 K/CU MM 150-450 MEAN PLATELET VOLUME (BEAKER) (test rzmy=682) 11.1 fL 9.4-12.4 NUCLEATED RED BLOOD CELLS (BEAKER) (test xecl=983) 0 /100 WBC 0-0 NEUTROPHILS RELATIVE PERCENT (BEAKER) (test hqhh=622) 55 % LYMPHOCYTES RELATIVE PERCENT (BEAKER) (test nysy=180) 27 % MONOCYTES RELATIVE PERCENT (BEAKER) (test yaua=190) 12 % EOSINOPHILS RELATIVE PERCENT (BEAKER) (test pmje=143) 5 % BASOPHILS RELATIVE PERCENT (BEAKER) (test xeyk=416) 1 % NEUTROPHILS ABSOLUTE COUNT (BEAKER) (test rwne=912) 3.77 K/ L 1.78-5.38 LYMPHOCYTES ABSOLUTE COUNT (BEAKER) (test vfry=776) 1.83 K/ L 1.32-3.57 MONOCYTES ABSOLUTE COUNT (BEAKER) (test pmrl=894) 0.80 K/ L 0.30-0.82 EOSINOPHILS ABSOLUTE COUNT (BEAKER) (test sukk=805) 0.36 K/ L 0.04-0.54 BASOPHILS ABSOLUTE COUNT (BEAKER) (test toxw=664) 0.09 K/ L 0.01-0.08 IMMATURE GRANULOCYTES-RELATIVE PERCENT (BEAKER) (test ojav=3948) 1 % 0-1
== END 2019-05-22 14:58 | disposition home or self-care (01) ==
LOC: ER 14:33
DX: S81.831A Puncture wound without foreign body, right lower leg, initial encounter (principal); Z98.890 Other specified postprocedural states; Z95.828 Presence of other vascular implants and grafts; Z95.1 Presence of aortocoronary bypass graft; F17.200 Nicotine dependence, unspecified, uncomplicated; I10 Essential (primary) hypertension; E78.5 Hyperlipidemia, unspecified
CPT/HCPCS: 99282